=== PATIENT | female | born 2000 | race Caucasian/White ===

== ENCOUNTER 2021-09-05 09:13 | Outpatient (REF) | payer OTHER, SELFPAY ==
[2021-09-05 11:18] LABS: MANUAL DIFF FLAG NO
[2021-09-05 11:29] LABS: Basophils Percent Auto 0.3 % (0-2); Eosinophils Absolute Auto 0.2 X10*3/uL (0.0-0.4); Eosinophils Percent Auto 3.7 % (0-4); Hematocrit 42.4 % (37.0-47.0); Hemoglobin 14.4 g/dl (12.0-16.0); Imm Gran Abs Auto 0.02 X10*3/uL (0.00-0.03); Imm Gran Pct Auto 0.3 % (0.0-0.4); Lymphocytes Absolute Auto 2.4 X10*3/uL (1.2-4.9); Lymphocytes Percent Auto 37.9 % (20-40); Mean Corpuscular Hemoglobin 30.7 pg (27.0-33.0); Mean Corpuscular Volume 90.4 fL (80.0-98.0); Mean Platelet Volume 9.8 fL (9.4-12.3); Monocytes Absolute Auto 0.5 X10*3/uL (0.1-1.2); Monocytes Percent Auto 7.3 % (2-11); Neutrophils Absolute Auto 3.2 x10*3/uL (2.0-8.3); Neutrophils Percent Auto 50.5 % (45-73); Platelet Count 247 X10*3/uL (160-400); Red Blood Count 4.69 X10*6/uL (4.20-5.50); Red Cell Distribution Width 11.8 % (11.0-16.0); White Blood Count 6.3 X10*3/uL (4.8-10.8)
[2021-09-05 12:08] LABS: Alanine Aminotransferase 93 U/L (0-31); Anion Gap 12 (12-20); Aspartate Amino Transferase 49 U/L (5-31); Blood Urea Nitrogen 10 mg/dL (9-16); Calcium 9.9 mg/dL (8.4-10.2); Carbon Dioxide 25 mmol/L (22-29); Chloride 107 mmol/L (96-108); Cholesterol 250 mg/dL; Estimated Glomerular Filt Rate > 60; Glucose Fasting 87 mg/dL (60-99); HDL Cholesterol 37 mg/dL; LDL Cholesterol Calculated 143 mg/dl; Potassium 4.3 mmol/L (3.3-5.1); Sodium 140 mmol/L (135-145); TSH reflex Free T4 1.45 uIU/mL (0.32-4.0); Triglycerides 354 mg/dL
[2021-09-06 06:57] LABS: LDL Cholesterol Direct 172 mg/dL (<100)
== END 2021-09-05 09:14 | disposition home or self-care (01) ==
LOC: HO.HMGCLDS 09:13
PROVIDERS: PCP Internal Medicine; Visit Provider Internal Medicine
DX: Z00.01 Encounter for general adult medical examination with abnormal findings (principal); E66.9 Obesity, unspecified; E78.1 Pure hyperglyceridemia; Z78.9 Other specified health status; Z83.49 Family history of other endocrine, nutritional and metabolic diseases
CPT/HCPCS: 36415; 80048; 80061; 82306; 83721; 84443; 84450; 84460; 85025

== ENCOUNTER 2021-10-02 11:01 | Outpatient (REF) | payer OTHER, SELFPAY ==
[2021-10-02 17:07] LABS: CT PCR NOT DETECTED (Not Detect.); NG PCR NOT DETECTED (Not Detect.)
[2021-10-03 13:31] LABS: BV Int Neg Control Negative (Negative); BV Int Pos Control Positive (Positive)
== END 2021-10-02 11:02 | disposition home or self-care (01) ==
LOC: HO.LAB 11:01
PROVIDERS: PCP Internal Medicine; Visit Provider Advanced Practice Midwife
DX: Z01.419 Encounter for gynecological examination (general) (routine) without abnormal findings (principal); N92.6 Irregular menstruation, unspecified; N92.0 Excessive and frequent menstruation with regular cycle; E78.01 Familial hypercholesterolemia; E66.9 Obesity, unspecified; E55.9 Vitamin D deficiency, unspecified; Z11.51 Encounter for screening for human papillomavirus (HPV); Z11.3 Encounter for screening for infections with a predominantly sexual mode of transmission; Z11.8 Encounter for screening for other infectious and parasitic diseases; Z68.38 Body mass index [BMI] 38.0-38.9, adult; Z88.1 Allergy status to other antibiotic agents; Z91.010 Allergy to peanuts; Z88.0 Allergy status to penicillin; Z88.8 Allergy status to other drugs, medicaments and biological substances; Z91.018 Allergy to other foods; Z79.899 Other long term (current) drug therapy
CPT/HCPCS: 87480; 87491; 87510; 87591; 87660; 88142

== ENCOUNTER 2021-12-03 07:51 | Outpatient (REF) | payer OTHER, SELFPAY ==
[2021-12-03 12:03] LABS: Alanine Aminotransferase 85 U/L (0-31); Aspartate Amino Transferase 58 U/L (5-31); Cholesterol 169 mg/dL; HDL Cholesterol 41 mg/dL; LDL Cholesterol Calculated 86 mg/dl; Triglycerides 211 mg/dL
[2021-12-03 12:14] LABS: Vitamin D 25-OH Total 61.3 ng/mL (>30)
== END 2021-12-03 07:52 | disposition home or self-care (01) ==
LOC: HO.HMGCLDS 07:51
PROVIDERS: Visit Provider Internal Medicine
DX: E78.2 Mixed hyperlipidemia (principal); E55.9 Vitamin D deficiency, unspecified; E66.9 Obesity, unspecified
CPT/HCPCS: 36415; 80061; 82306; 84450; 84460

== ENCOUNTER 2022-09-05 09:43 | Outpatient (AMB) | payer OTHER, SELFPAY ==
--- NOTE | 2022-09-05 09:47 | MHC.PC.OV ---
Vital Signs 09/05/22 09:48 Height 5 ft 4 in Weight 225 lb BMI 38.6 BP 110/72 Blood Pressure Location Lt brachial Position Sitting Pulse 81 Pulse Source Pulse Oximeter Pulse Oximetry (%) 98 Oxygen Delivery Method Room Air Intake Visit Reasons: Shoulder Pain Intake Note: Pt is here today c/o Rt shoulder pain due to repetative movements ? pulled muscle Allergies amoxicillin Allergy (Unknown, Verified 03/23/23 00:37) Rash Hives Penicillins [PENICILLINS] Allergy (Unknown, Verified 03/23/23 00:37) HIVES venlafaxine Adverse Reaction (Intermediate, Verified 03/23/23 00:37) migraines apple Adverse Reaction (Verified 03/23/23 00:37) lip swollen Peanuts Allergy (Unknown, Uncoded 03/23/23 00:37) Hives, Rash Medication List - Last Reconciled 09/05/22 by Ana Cristina Han MD cyclobenzaprine 5 mg PO BEDTIME PRN epinephrine (EpiPen 2-Jose Alfredo) 0.3 mg (0.3 mL) IM Q4H PRN levonorgestrel-ethinyl estrad 0.15 mg-30 mcg (91) take 1 tablet daily following the order on blister card(s) PO mupirocin 2% 1 appl topical BID 7 days omega-3 acid ethyl esters (Lovaza) 1 cap PO BID rosuvastatin 5 mg PO DAILY Tobacco use date assessed: 09/05/22 HPI Shoulder Pain HPI Details 22-year-old lady here today complaining of pain in her right shoulder joint, worse with eating anything heavy with her right arm. 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 She has been taking [id number] NSAIDs which affords only temporary relief. Also has mixed dyslipidemia currently on rosuvastatin 5 mg daily and Pateros 3 fatty acid supplements. Has been trying to follow recommended diet. [facility] Medical History Chronic right shoulder pain Depression Family history of thyroid disease Hypertriglyceridemia Low back pain Menometrorrhagia Mixed dyslipidemia Obesity Uses control Vitamin D deficiency Family History Maternal Grandmother Hypertriglyceridemia Social History Housing: House Alcohol intake: current Alcohol intake frequency: holidays/special occasions only Patient Tobacco Use Status: Never used Tobacco e-Cigarette/Vaping Use: Never Used service: No Current occupational status: employed Cognitive needs: No Hearing needs: No Vision needs: No Female Reproductive History Menstrual Age of Menarche: 11 Questionnaire Thrive Questionnaire Date Thrive assessed: 09/05/21 JADON-7 AMB Questionnaire JADON-7 Date JADON - 7 assessed: 09/05/21 Source: Developed by Drs. Ronal Jarrett, Brionna Mosquera, Darryn Strickland and colleagues, with an educational tammi from [employer]. Review of Systems Const Reports no additional complaints Card Denies chest pain, Denies chest pain with activity, Denies rapid heart rate, Denies irregular heart rhythm, Denies lightheadedness and Denies dyspnea Resp Denies cough and Denies dyspnea GI Denies abdominal pain, Denies change in bowel habits and Denies heartburn Musc Denies joint swelling, Denies muscle cramps, Denies muscle weakness and Reports stiffness Skin/Breast Denies rash Neuro Reports no additional complaints Physical exam (Primary Care) Vital Signs: Last Vital Signs Pulse 81 09/05/22 09:48 BP 110/72 09/05/22 09:48 Pulse Ox 98 09/05/22 09:48 Oxygen Delivery Method Room Air 09/05/22 09:48 BMI result Body Mass Index 38.6 Tobacco/Smoking Status: Tobacco use Status Tobacco use date assessed 09/05/22 09/05/22 09:53 Patient Tobacco Use Status Never used Tobacco 09/05/22 09:53 e-Cigarette/Vaping Use Never Used 09/05/22 09:53 Thrive Assessment: Date of Thrive Assessment Date Thrive assessed 09/05/21 09/05/22 09:53 Const General: comfortable, no acute distress, alert, awake and Physically active Nutritional Appearance: obese Orientation/consciousness: patient oriented x3 HENMT Head: Yes normocephalic and Yes atraumatic General nose exam: Normal external nose present Face and sinus: Yes face symmetric Eyes General: appearance normal, both eyes and all related structures Neck Neck: Yes full ROM, Yes no lymphadenopathy and Yes supple Resp Effort & Inspection: normal respiratory effort and able to speak in complete sentences Auscultation: clear to auscultation bilaterally Cardio Rate: regular rate Rhythm: regular rhythm Heart sounds: S1 normal heart sound present and S2 normal heart sound present Back/Spine/Pelvis Cervical Spine: cervical muscular tenderness (Right trapezius area) Skin General skin exam: no rashes or lesions noted Neuro General: patient oriented x3, gait normal, tone normal, moves all extremities, Normal light touch and pain sensation, no focal motor deficits and CN's II-XI intact bilaterally Gait exam (Neuro): Normal gait present Motor exam (neuro): 5/5 motor strength present throughout Extrem Other: Slight tenderness on palpation right AC joint and no gross bone deformity or joint swelling seen. Assessment and Plan Assessment & Plan (1) Chronic right shoulder pain: Code(s): M25.511 - Pain in right shoulder; G89.29 - Other chronic pain Plan: New taking ibuprofen alternating with Tylenol arthritis 650 mg per tablet every 8 hours as needed for pain, prescription also sent for cyclobenzaprine 5 mg to take at bedtime as needed for painful muscle spasm. MRI of right shoulder joint without contrast or (2) Mixed dyslipidemia: Code(s): E78.2 - Mixed hyperlipidemia Plan: Fasting lipids ordered together with liver enzymes . Continue with rosuvastatin and Pateros 3 fatty acid supplements , in addition to adherence to low-cholesterol diet and regular exercise, at least 30 minutes 3 to 4 times a week. Advised patient to make healthy food choices, eat more fruits, vegetables, whole grains, wild caught fish and low-fat dairy. Limit amount of meat and fried or fatty food products, as well as processed foods and fast foods. Orders: Orders MR shoulder RT wo con 09/05/22 M25.511 - Pain in right shoulder, G89.29 - Other chronic pain Alanine Aminotransferase 09/05/22 E78.2 - Mixed hyperlipidemia Aspartate Amino Transferase 09/05/22 E78.2 - Mixed hyperlipidemia Lipid Panel 09/05/22 E78.2 - Mixed hyperlipidemia Medications: New cyclobenzaprine 5 mg PO BEDTIME PRN Coding Level of Care Code Est Pt Level 3 (19566) Diagnoses Chronic right shoulder pain M25.511; G89.29 Mixed dyslipidemia E78.2
[2022-09-05 09:48] VITALS: BP 110/72; PULSE 81; O2SAT 98; BMI 38.6
== END 2022-09-05 11:11 | disposition home or self-care (01) ==
LOC: HO.HMGC 09:43
PROVIDERS: PCP Internal Medicine; Visit Provider Internal Medicine
DX: M25.511 Pain in right shoulder (principal); G89.29 Other chronic pain; E78.2 Mixed hyperlipidemia
CPT/HCPCS: 99213

== ENCOUNTER 2022-09-05 10:30 | Outpatient (REF) | payer OTHER, SELFPAY ==
[2022-09-05 11:51] LABS: Alanine Aminotransferase 72 U/L (0-31); Aspartate Amino Transferase 47 U/L (5-31); Cholesterol 162 mg/dL; HDL Cholesterol 41 mg/dL; LDL Cholesterol Calculated 85 mg/dl; Triglycerides 184 mg/dL
== END 2022-09-05 10:31 | disposition home or self-care (01) ==
LOC: HO.HMGCLDS 10:30
PROVIDERS: PCP Internal Medicine; Visit Provider Internal Medicine
DX: E78.2 Mixed hyperlipidemia (principal); M25.511 Pain in right shoulder; G89.29 Other chronic pain
CPT/HCPCS: 36415; 80061; 84450; 84460

== ENCOUNTER 2022-09-25 08:53 | Outpatient (REF) | payer OTHER, SELFPAY ==
--- NOTE | ~2022-09-25 | MR_ITS ---
EXAMINATION: MR SHOULDER WITHOUT CONTRAST, RIGHT CLINICAL INFORMATION: Right shoulder pain COMPARISON: None TECHNIQUE: MRI of the shoulder without contrast was performed on a high-field scanner. FINDINGS: ROTATOR CUFF: Intact. No muscle atrophy or fatty infiltration. BICEPS: Normal. CORACOACROMIAL ARCH: The undersurface of the acromion is flat with slight lateral downsloping. The acromioclavicular joint is normal. Mild soft tissue edema in the subacromial subdeltoid bursa and along the undersurface of the coracoacromial ligament. LABRUM/CAPSULE: Normal. GLENOHUMERAL JOINT/MARROW: No joint effusion or articular cartilage defect. Bone marrow signal is normal. MR/MR shoulder RT wo con IMPRESSION: 1. No rotator cuff tear. 2. Slight lateral downsloping of the acromion and mild subacromial subdeltoid bursal edema which extends along the undersurface of the coracoacromial ligament.
== END 2022-09-25 08:54 | disposition home or self-care (01) ==
LOC: HO.MRI 08:53
PROVIDERS: Visit Provider Internal Medicine
DX: G89.29 Other chronic pain (principal); M25.511 Pain in right shoulder
CPT/HCPCS: 73221

== ENCOUNTER 2023-03-20 13:16 | Outpatient (AMB) | payer OTHER, SELFPAY ==
[2023-03-20 13:18] VITALS: BP 112/70; PULSE 86; O2SAT 99; BMI 39.3
--- NOTE | 2023-03-20 13:18 | A.OFFPC_ITS ---
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: No Accompanied by: Self / Same As Patient Allergies amoxicillin Allergy (Unknown, Verified 03/23/23 00:37) Rash Hives Penicillins [PENICILLINS] Allergy (Unknown, Verified 03/23/23 00:37) HIVES venlafaxine Adverse Reaction (Intermediate, Verified 03/23/23 00:37) migraines apple Adverse Reaction (Verified 03/23/23 00:37) lip swollen Peanuts Allergy (Unknown, Uncoded 03/23/23 00:37) Hives, Rash Medication List - Last Reconciled 03/20/23 by Ana Cristina Han MD epinephrine (EpiPen 2-Jose Alfredo) 0.3 mg (0.3 mL) IM Q4H PRN levonorgestrel-ethinyl estrad 0.15 mg-30 mcg (91) take 1 tablet daily following the order on blister card(s) PO rosuvastatin 5 mg PO 2XW Tobacco use date assessed: 09/05/22 Dental Screening Dental Screen Date: 03/20/23 Did you have a dental visit in the last 12 months?: Yes Did you have a dental problem in the last 6 months where you did not have access to dental care?: No Was dental information given to patient?: Patient has dentist HPI R shoulder pain HPI Details 22-year-old lady with mixed dyslipidemia, obesity, here today complaining of recurrent pain in her right shoulder joint, now seem to be getting worse. 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 MRI done several months ago showed no rotator cuff tear?No rotator cuff tear, slight lateral downsloping of the acromion and mild subacromial subdeltoid bursal edema which extends along the undersurface of the coracoacromial ligament.. [facility] Medical History Chronic right shoulder pain Depression Family history of thyroid disease Hypertriglyceridemia Low back pain Menometrorrhagia Mixed dyslipidemia Obesity Uses control Vitamin D deficiency Family History Maternal Grandmother Hypertriglyceridemia Social History Housing: House Alcohol intake: current Alcohol intake frequency: holidays/special occasions only Patient Tobacco Use Status: Never used Tobacco e-Cigarette/Vaping Use: Never Used service: No Current occupational status: employed Cognitive needs: No Hearing needs: No Vision needs: No Female Reproductive History Menstrual Age of Menarche: 11 Questionnaire PHQ-9 Over the last 2 weeks, how often have you been bothered by any of the following problems? 1. Little interest or pleasure in doing things: not at all 2. Feeling down, depressed, or hopeless: not at all 3. Trouble falling or staying asleep, or sleeping too much: several days 4. Feeling tired or having little energy: several days 5. Poor appetite or overeating: not at all 6. Feeling bad about yourself - or that you are a failure or have let yourself or your family down: not at all 7. Trouble concentrating on things, such as reading the newspaper or watching television: not at all 8. Moving or speaking so slowly that other people could have noticed. Or the opposite - being so fidgety or restless that you have been moving around a lot more than usual: not at all 9. Thoughts that you would be better off or of hurting yourself in some way: not at all Total score: 2 Depression Screening Interpretation: Negative 77760 - PHQ-9 Billing: Yes Source: Developed by Drs. Ronal Jarrett, Brionna Mosquera, Darryn Strickland and colleagues, with an educational tammi from [employer]. Thrive Questionnaire Date Thrive assessed: 03/20/23 I am a: Patient What is your living situation today?: I have a steady place to live Within the past 12 months, did the food you bought not last and you didn't have the money to get more?: Never true Within the past 12 months, did you worry whether your food would run out before you got money to buy more?: Never true Do you have trouble paying for medicines?: No Do you have trouble getting transportation to medical appointments?: No Do you have trouble paying your heating and electricity bill?: No Do you have trouble taking care of your child, family member or friend?: No Do you have trouble with day-to-day activities such as bathing, preparing meals, shopping, managing finances, etc.?: No Are you currently unemployed and looking for a job?: No Are you interested in more education?: No AUDIT C Alcohol Use Questionnaire (AUDIT-C) 1. How often do you have a drink containing alcohol?: Never Total Score: 0 JADON-7 AMB Questionnaire JADON-7 Date JADON - 7 assessed: 09/05/21 Source: Developed by Drs. Ronal Jarrett, Brionna Mosquera, Darryn Strickland and colleagues, with an educational tammi from [employer]. Review of Systems ENT Reports no additional complaints Card Denies chest pain, Denies rapid heart rate, Denies irregular heart rhythm, Denies lightheadedness and Denies dyspnea Resp Denies cough and Denies dyspnea GI Denies abdominal pain and Denies change in bowel habits Musc Reports as per HPI, Reports joint swelling, Reports limited range of motion (Right Shoulder), Denies muscle weakness, Reports stiffness and Reports tingling Neuro Reports no additional complaints, Reports tingling and Reports paresthesias Physical exam (Primary Care) Vital Signs: Last Vital Signs Pulse 86 03/20/23 13:18 BP 112/70 03/20/23 13:18 Pulse Ox 99 03/20/23 13:18 BMI result Body Mass Index 39.3 Tobacco/Smoking Status: Tobacco use Status Tobacco use date assessed 09/05/22 03/20/23 13:21 Patient Tobacco Use Status Never used Tobacco 03/20/23 13:21 e-Cigarette/Vaping Use Never Used 03/20/23 13:21 Depression Screening Interpretation: Negative Thrive Assessment: Date of Thrive Assessment Date Thrive assessed 09/05/21 03/20/23 13:21 Const General: comfortable, no acute distress, alert, awake and Physically active Nutritional Appearance: obese Orientation/consciousness: patient oriented x3 HENMT Head: Yes normocephalic and Yes atraumatic General nose exam: Normal external nose present Face and sinus: Yes face symmetric Neck Neck: Yes full ROM, Yes no lymphadenopathy, Yes supple and Yes tender (Right trapezius area and right posterior neck) Resp Effort & Inspection: normal respiratory effort and able to speak in complete sentences Auscultation: clear to auscultation bilaterally Cardio Rate: regular rate Rhythm: regular rhythm Heart sounds: S1 normal heart sound present and S2 normal heart sound present Back/Spine/Pelvis Cervical Spine: cervical muscular tenderness (Right trapezius area) Skin General skin exam: no rashes or lesions noted Neuro General: patient oriented x3, gait normal, tone normal, moves all extremities, Normal light touch and pain sensation, no focal motor deficits and CN's II-XI intact bilaterally Gait exam (Neuro): Normal gait present Motor exam (neuro): 5/5 motor strength present throughout Extrem Other: Slight tenderness on palpation right AC joint and no gross bone deformity or joint swelling seen. Right upper extremity: shoulder/upper arm (Tenderness over right AC joint w/ pain in shoulder on abduction ) Assessment and Plan Assessment & Plan (1) Chronic right shoulder pain: Code(s): M25.511 - Pain in right shoulder; G89.29 - Other chronic pain (2) Mixed dyslipidemia: Code(s): E78.2 - Mixed hyperlipidemia Plan: Continued on rosuvastatin and [place] 3 fatty acid supplements, ordered fasting lipids and liver enzymes Orders: Orders Lipid Panel 03/20/23 E78.2 - Mixed hyperlipidemia Aspartate Amino Transferase 03/20/23 E78.2 - Mixed hyperlipidemia Alanine Aminotransferase 03/20/23 E78.2 - Mixed hyperlipidemia Referrals Orthopedics Referral G89.29 - Other chronic pain, M25.511 - Pain in right shoulder Coding Level of Care Code Est Pt Level 3 (94764) Diagnoses Chronic right shoulder pain M25.511; G89.29 Mixed dyslipidemia E78.2
== END 2023-03-20 14:36 | disposition home or self-care (01) ==
PROVIDERS: Visit Provider Internal Medicine
DX: M25.511 Pain in right shoulder (principal); G89.29 Other chronic pain; E78.2 Mixed hyperlipidemia
CPT/HCPCS: 99213

== ENCOUNTER 2023-05-06 10:45 | Outpatient (AMB) | payer OTHER, SELFPAY ==
[2023-05-06 10:52] VITALS: BMI 39.3
--- NOTE | 2023-05-06 10:52 | A.OFFVIS_ITS ---
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 She was seen by her PCP who ordered a MRI and referred to orthopedics. States a few months after pain presented she started having tingling in her MF & RF as well as elbow. Limited ROM. No other tx. 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 She was seen by her PCP who ordered MRI and referred to our office. She states she has pain and limited ROM in her shoulder which radiates up to her neck and down to her arm. She also c/o occasional numbness in her middle and ring finger as well as the elbow. She denies any pain with reaching back. She has not had any treatment in the past. [facility] Medical History Chronic right shoulder pain Depression Family history of thyroid disease Hypertriglyceridemia Low back pain Menometrorrhagia Mixed dyslipidemia Obesity Uses control Vitamin D deficiency Family History Maternal Grandmother Hypertriglyceridemia Social History (Updated 05/06/23 @ 10:56 by Love Julian Maritza) Housing: House Alcohol intake: current Alcohol intake frequency: holidays/special occasions only Patient Tobacco Use Status: Never used Tobacco e-Cigarette/Vaping Use: Never Used service: No Current occupational status: employed Current occupation: kitchen food 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, 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 Cognitive needs: No Hearing needs: No Vision needs: No Female Reproductive History Menstrual Age of Menarche: 11 Review of Systems Const All systems reviewed & are unremarkable except as noted in HPI and below Physical Exam Vital Signs: BMI result Body Mass Index 39.3 Const General: cooperative, healthy appearing, comfortable, no acute distress, well developed and alert Orientation/consciousness: patient oriented x3 HEENT Head: Yes normal to inspection, Yes normocephalic and Yes atraumatic Eyes General: appearance normal, both eyes and all related structures Resp Effort & Inspection: normal respiratory effort and able to speak in complete sentences Cardio Rate: regular rate Peripheral pulses: Peripheral pulses 2+ throughout GI Palpation (GI): Soft to palpation Skin Lesions: no lesions Rashes: no rashes Neuro General: patient oriented x3 Extrem Other: Right shoulder normal to inspection. Tenderness over the bicipital groove and along the deltoid region of the shoulder. Forward flexion to 115, external rotation to 90, internal rotation to S1. 5/5 RTC strength. Positive Miller. NVI. Results Reviewed Results Reviewed: Xrays were obtained in the office today and personally reviewed by me of the right shoulder negative for acute fracture or dislocations. Assessment & Plan Assessment & Plan (1) Tendinitis of right rotator cuff: Code(s): M75.81 - Other shoulder lesions, right shoulder Plan We discussed options which include PT, NSAIDs and injections. The patient will defer on the injection today and proceed with PT and NSAIDs. I did send a prescription of ibuprofen to the pharmacy. If symptoms persist, the patient will contact me for an injection, otherwise, PRN. Orders: Orders XR shoulder RT min 2V Today M25.511 - Pain in right shoulder PT Evaluation and Treatment Today M75.81 - Other shoulder lesions, right shoulder Medications: New ibuprofen 800 mg PO Q8H PRN 90 tabs 3RF pain 30 days M75.81 - Other shoulder lesions, right shoulder Patient Instructions: Scribed for Maximiliano Stacy PA-C, by Pierre Randall medical technologist microbiology, on 05/06/2023 at 11:00 AM EST. IMaximiliano PA-C, have personally reviewed and agree with the information entered by the scribe. Coding Level of Care Code New Pt Level 3 (81154) Diagnoses Tendinitis of right rotator cuff M75.81
== END 2023-05-06 11:50 | disposition home or self-care (01) ==
PROVIDERS: Visit Provider Physician Assistant
DX: M75.81 Other shoulder lesions, right shoulder (principal)
CPT/HCPCS: 99203

== ENCOUNTER 2023-05-06 10:45 | Outpatient (REF) | payer OTHER, SELFPAY | END 2023-05-06 10:46 | disposition home or self-care (01) | LOC: HO.HOSX 10:45 | PROVIDERS: Visit Provider Physician Assistant | DX: M75.81 Other shoulder lesions, right shoulder (principal) | CPT/HCPCS: 73030; 99202 ==

== ENCOUNTER 2023-06-30 10:00 | Outpatient (RCR) | payer OTHER, SELFPAY | END 2023-07-16 11:34 | disposition home or self-care (01) | LOC: HO.PT 10:00 | PROVIDERS: PCP Internal Medicine; Visit Provider Physician Assistant | DX: M75.81 Other shoulder lesions, right shoulder (principal) | CPT/HCPCS: 97012; 97110; 97112; 97140; 97162 ==

== ENCOUNTER 2023-07-03 08:17 | Outpatient (AMB) | payer OTHER, SELFPAY ==
[2023-07-03 08:21] VITALS: BP 120/78; PULSE 88; O2SAT 97; BMI 39.9
--- NOTE | 2023-07-03 08:21 | A.OFFPC_ITS ---
Vital Signs 07/03/23 08:21 Height 5 ft 4 in Weight 232 lb 4 oz BMI 39.9 BP 120/78 Blood Pressure Location Lt brachial Position Sitting Pulse 88 Pulse Source Pulse Oximeter Pulse Oximetry (%) 97 Oxygen Delivery Method Room Air Intake Visit Reasons: Discuss medication Intake Note: Pt is here to discuss being put back on an antidepressant medication Allergies amoxicillin Allergy (Unknown, Verified 07/03/23 08:39) Rash Hives Penicillins [PENICILLINS] Allergy (Unknown, Verified 07/03/23 08:39) HIVES kiwi Allergy (Verified 07/03/23 08:39) hives, itchy venlafaxine Adverse Reaction (Intermediate, Verified 07/03/23 08:39) migraines apple Adverse Reaction (Verified 07/03/23 08:39) lip swollen Peanuts Allergy (Unknown, Uncoded 07/03/23 08:39) Hives, Rash Medication List - Last Reconciled 07/03/23 by Ana Cristina Han MD epinephrine (EpiPen 2-Jose Alfredo) 0.3 mg (0.3 mL) IM Q4H PRN ibuprofen 800 mg PO Q8H PRN 30 days levonorgestrel-ethinyl estrad 0.15 mg-30 mcg (91) take 1 tablet daily following the order on blister card(s) PO omega 2-gmg-mbg-fish oil 360-1,200 mg (Fish Oil) 2 caps PO DAILY rosuvastatin 5 mg PO 2XW Tobacco use date assessed: 07/03/23 Dental Screening Dental Screen Date: 07/03/23 Did you have a dental visit in the last 12 months?: Yes Did you have a dental problem in the last 6 months where you did not have access to dental care?: No Was dental information given to patient?: Patient has dentist HPI Discuss medication HPI Details 22-year-old lady here today complaining of frequent anxiety attacks. She has been diagnosed to have anxiety and depression in the past and was previously on venlafaxine, but this did not agree with her and had a hard time weaning off the medication. She states that most things would make her anxious and had a very big panic attack after a dentist visit recently. She has had therapy in the past and would like to try starting goes again . She has mixed dyslipidemia currently on rosuvastatin 5 mg taken twice a week and the of [place] 3 fatty acid supplements, due for a recheck [facility] Medical History (Updated 07/03/23 @ 08:56 by Ana Cristina Han MD) Generalized anxiety disorder Chronic right shoulder pain Mixed dyslipidemia Vitamin D deficiency Low back pain Family history of thyroid disease Uses control Menometrorrhagia Obesity Hypertriglyceridemia Depression Family History Maternal Grandmother Hypertriglyceridemia Social History Housing: House Alcohol intake: current Alcohol intake frequency: holidays/special occasions only Patient Tobacco Use Status: Never used Tobacco e-Cigarette/Vaping Use: Never Used service: No Current occupational status: employed 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 Depression Screening Interpretation: Negative Depression Screening Done: Yes Source: Developed by Drs. Ronal Jarrett, Brionna Mosquera, Darryn Strickland and colleagues, with an educational tammi from [employer]. Thrive Questionnaire Date Thrive assessed: 03/20/23 JADON-7 AMB Questionnaire JADON-7 Date JADON - 7 assessed: 07/03/23 Feeling nervous, anxious, or on edge: 2 = More than half the days Not being able to stop or control worryin = Several days Worrying too much about different things: 2 = More than half the days Trouble relaxin = Several days Being so restless that it is hard to sit still: 1 = Several days Becoming easily annoyed or irritable: 1 = Several days Feeling afraid as if something awful might happen: 1 = Several days Total JADON-7 score (0-4 normal; 5-9 mild; 10-14 moderate; 15-21 severe): 9 Source: Developed by Drs. Ronal Jarrett, Brionna Mosquera, Darryn Strickland and colleagues, with an educational tammi from [employer]. JADON-7 Assessment Billing JADON-7 Assessment Tool: JADON-7 Assessment 73221 Review of Systems Const All systems reviewed & are unremarkable except as noted in HPI and below Physical exam (Primary Care) Vital Signs: Last Vital Signs Pulse 88 07/03/23 08:21 BP 120/78 07/03/23 08:21 Pulse Ox 97 07/03/23 08:21 Oxygen Delivery Method Room Air 07/03/23 08:21 BMI result Body Mass Index 39.9 Tobacco/Smoking Status: Tobacco use Status Tobacco use date assessed 07/03/23 07/03/23 08:28 Patient Tobacco Use Status Never used Tobacco 07/03/23 08:21 e-Cigarette/Vaping Use Never Used 07/03/23 08:21 Depression Screening Interpretation: Negative Thrive Assessment: Date of Thrive Assessment Date Thrive assessed 03/20/23 07/03/23 08:21 Const General: no acute distress, alert and awake Nutritional Appearance: obese Orientation/consciousness: patient oriented x3 HENMT Head: Yes atraumatic Face and sinus: Yes face symmetric Neck Neck: Yes full ROM, Yes no lymphadenopathy and Yes supple Resp Effort & Inspection: normal respiratory effort and able to speak in complete sentences Auscultation: clear to auscultation bilaterally Cardio Rate: regular rate Rhythm: regular rhythm Heart sounds: S1 normal heart sound present and S2 normal heart sound present Neuro General: patient oriented x3, gait normal, tone normal, moves all extremities, Normal light touch and pain sensation, no focal motor deficits and CN's II-XI intact bilaterally Gait exam (Neuro): Normal gait present Motor exam (neuro): 5/5 motor strength present throughout Psych Appearance: grossly normal and well kempt Mental Status: mental status grossly normal Speech and movement: Normal speech and movement present Affect: normal affect Attitude: cooperative Thought process: Normal thought process present Thought content: Normal thought content present Assessment and Plan Assessment & Plan (1) Generalized anxiety disorder: Code(s): F41.1 - Generalized anxiety disorder Plan: Will start on buspirone 5 mg per tablet to take 1 tablet twice a day initially and may take at in another does during the middle of the day as needed for acute anxiety attacks. 90 tabs were with no refill. Discussed possible side effects of medication with patient Will refer for counseling, and will have her come back for tele health visit in 3 weeks for follow-up (2) Mixed dyslipidemia: Code(s): E78.2 - Mixed hyperlipidemia Plan: Fasting lipid panel ordered together with liver enzymes. Continue with rosuvastatin at same dose and adhere to a low-cholesterol diet and get regular exercise. (3) Vitamin D deficiency: Code(s): E55.9 - Vitamin D deficiency, unspecified Plan: Vitamin-D level ordered today, recommend just starting to take 2000 units of vitamin-D 3 once a day during the winter months. Orders: Orders Alanine Aminotransferase Today E55.9 - Vitamin D deficiency, unspecified, E78.2 - Mixed hyperlipidemia Aspartate Amino Transferase Today E55.9 - Vitamin D deficiency, unspecified, E78.2 - Mixed hyperlipidemia Lipid Panel Today E55.9 - Vitamin D deficiency, unspecified, E78.2 - Mixed hyperlipidemia Vitamin D 25-OH Total Today E55.9 - Vitamin D deficiency, unspecified, E78.2 - Mixed hyperlipidemia Medications: New buspirone 5 mg PO TID 90 tabs 0RF Coding Level of Care Code Est Pt Level 3 (17607) Diagnoses Generalized anxiety disorder F41.1 Mixed dyslipidemia E78.2 Vitamin D deficiency E55.9 Additional Codes JADON-7 Assessment Billing - JADON-7 Assessment Tool: JADON-7 Assessment 04353 ([id number])
== END 2023-07-03 10:37 | disposition home or self-care (01) ==
PROVIDERS: PCP Internal Medicine; Visit Provider Internal Medicine
DX: F41.1 Generalized anxiety disorder (principal); E78.2 Mixed hyperlipidemia; E55.9 Vitamin D deficiency, unspecified
CPT/HCPCS: 96127; 99213

== ENCOUNTER 2023-07-03 09:16 | Outpatient (REF) | payer OTHER, SELFPAY ==
[2023-07-03 11:56] LABS: Alanine Aminotransferase 55 U/L (0-31); Aspartate Amino Transferase 50 U/L (5-31); Cholesterol 182 mg/dL (<200); HDL Cholesterol 42 mg/dL (>40); LDL Cholesterol Calculated 86 mg/dL (<100); Triglycerides 272 mg/dL (<150)
[2023-07-03 12:20] LABS: Vitamin D 25-OH Total 41.7 ng/mL (>30)
== END 2023-07-03 09:17 | disposition home or self-care (01) ==
LOC: HO.HMGCLDS 09:16
PROVIDERS: PCP Internal Medicine; Visit Provider Internal Medicine
DX: E78.2 Mixed hyperlipidemia (principal); E55.9 Vitamin D deficiency, unspecified
CPT/HCPCS: 36415; 80061; 82306; 84450; 84460

== ENCOUNTER 2023-07-21 08:18 | Outpatient (AMB) | payer OTHER, SELFPAY ==
--- NOTE | 2023-07-21 08:25 | MHC.PC.OV ---
Vital Signs 07/21/23 08:26 Height 5 ft 4 in Weight 231 lb 2 oz BMI 39.7 BP 122/78 Blood Pressure Location Lt brachial Position Sitting Pulse 80 Pulse Source Pulse Oximeter Pulse Oximetry (%) 97 Oxygen Delivery Method Room Air Intake Visit Reasons: Annual PE Intake Note: Pt is here for her Annual PE pt says she has had a cough and runny nose for about a week so her asthma is flaring up Is last menstrual period known: Yes Last menstrual period: 05/31/23 Allergies amoxicillin Allergy (Unknown, Verified 07/21/23 08:59) Rash Hives Penicillins [PENICILLINS] Allergy (Unknown, Verified 07/21/23 08:59) HIVES kiwi Allergy (Verified 07/21/23 08:59) hives, itchy venlafaxine Adverse Reaction (Intermediate, Verified 07/21/23 08:59) migraines apple Adverse Reaction (Verified 07/21/23 08:59) lip swollen Peanuts Allergy (Unknown, Uncoded 07/21/23 08:59) Hives, Rash Medication List - Last Reconciled 07/21/23 by Ana Cristina Han MD albuterol sulfate 90 mcg/actuation (ProAir HFA) 2 puffs inhalation Q6H PRN buspirone 5 mg PO TID epinephrine (EpiPen 2-Jose Alfredo) 0.3 mg (0.3 mL) IM Q4H PRN fluticasone propionate 110 mcg/actuation 1 puff inhalation Q12H ibuprofen 800 mg PO Q8H PRN 30 days levonorgestrel-ethinyl estrad 0.15 mg-30 mcg (91) take 1 tablet daily following the order on blister card(s) PO omega 0-bwh-pke-fish oil 360-1,200 mg (Fish Oil) 2 caps PO DAILY rosuvastatin 5 mg PO 2XW Tobacco use date assessed: 07/21/23 Dental Screening Dental Screen Date: 07/21/23 Did you have a dental visit in the last 12 months?: Yes Did you have a dental problem in the last 6 months where you did not have access to dental care?: No Was dental information given to patient?: Patient has dentist HPI Annual PE HPI Details 23-year-old lady here today for physical exam. She has hyperlipidemia currently on rosuvastatin 5 mg taken 2 times a week, and [place] 3 fatty acid supplements 2 capsules daily, with recent fasting labs showing lipids within normal limits except for high triglycerides. Patient states that she has not really been compliant with her diet, eats a lot of fast foods and snacks. She was started on buspirone 5 mg per tablet, which she now takes twice a day, has been helping with her anxiety . She also started seeing a therapist at [facility] and counseling, She goes to [facility] for her routine Pap and pelvic exam, had her initial Pap smear done earlier this year, and is currently also being seen for surveillance for control. She has been complaining of a cough and nasal congestion with postnasal drainage for the last several days now has been taking [id number] DayQuil NyQuil which has been helping. She however has been having intermittent episodes of wheezing and chest congestion specially at night. Has started again using her ProAir inhaler and her fluticasone inhaler, which she uses only on occasions. [facility] Medical History (Updated 07/21/23 @ 09:22 by Ana Cristina Han MD) Mild intermittent asthma in adult without complication Generalized anxiety disorder Chronic right shoulder pain Mixed dyslipidemia Vitamin D deficiency Low back pain Family history of thyroid disease Uses control Menometrorrhagia Hypertriglyceridemia Depression Family History Maternal Grandmother Hypertriglyceridemia Social History Housing: House Alcohol intake: current Alcohol intake frequency: holidays/special occasions only Patient Tobacco Use Status: Never used Tobacco e-Cigarette/Vaping Use: Never Used service: No Current occupational status: employed 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 How often do you have a drink containing alcohol?: Never Total Score: 0 JADON-7 AMB Questionnaire JADON-7 Date JADON - 7 assessed: 07/03/23 Feeling nervous, anxious, or on edge: 0 = Not at all Not being able to stop or control worryin = Not at all Worrying too much about different things: 0 = Not at all Trouble relaxin = Not at all Being so restless that it is hard to sit still: 0 = Not at all Becoming easily annoyed or irritable: 0 = Not at all Feeling afraid as if something awful might happen: 0 = Not at all Total JADON-7 score (0-4 normal; 5-9 mild; 10-14 moderate; 15-21 severe): 0 Source: Developed by Drs. Ronal Jarrett, Brionna Mosquera, Darryn Strickland and colleagues, with an educational tammi from [employer]. JADON-7 Assessment Billing JADON-7 Assessment Tool: JADON-7 Assessment 09340 ACT Questionnaire In the past 4 weeks, how much of the time did your asthma keep you from getting as much done at work, school or at home?: None of the time During the past 4 weeks, how often have you had shortness of breath?: 1-2 times a week During the past 4 weeks, how often did your asthma symptoms wake you up at night or earlier than usual in the morning?: Once or twice per week During the past 4 weeks, how often have you had to use your rescue inhaler or nebulizer medication?: 2-3 times a week How would you rate your asthma control during the past 4 weeks?: Somewhat controlled ACT Interpretation: Positive Score: 19 Review of Systems Const Reports as per HPI, Denies body aches, Denies fever(s) and Denies malaise Eyes Reports blurry vision (Sees [facility] hse advisor) and Reports requires corrective lenses ENT Reports as per HPI Card Denies chest pain, Denies rapid heart rate, Denies irregular heart rhythm, Denies lightheadedness and Denies dyspnea Resp Denies dyspnea GI Denies abdominal pain and Denies change in bowel habits Reports no additional complaints Musc Reports no additional complaints Skin/Breast Denies breast pain, Denies breast mass, Denies lesions and Denies rash Neuro Reports no additional complaints Psych Reports no additional complaints Endo Reports no additional complaints Albert/Lymph Reports no additional complaints Aller/Immun Reports as per HPI Physical exam (Primary Care) Vital Signs: Last Vital Signs Pulse 80 07/21/23 08:26 BP 122/78 07/21/23 08:26 Pulse Ox 97 07/21/23 08:26 Oxygen Delivery Method Room Air 07/21/23 08:26 BMI result Body Mass Index 39.7 Tobacco/Smoking Status: Tobacco use Status Tobacco use date assessed 07/21/23 07/21/23 08:31 Patient Tobacco Use Status Never used Tobacco 07/21/23 08:25 e-Cigarette/Vaping Use Never Used 07/21/23 08:25 Thrive Assessment: Date of Thrive Assessment Date Thrive assessed 03/20/23 07/21/23 08:25 Const General: no acute distress, alert and awake Nutritional Appearance: obese Orientation/consciousness: patient oriented x3 HENMT Head: Yes atraumatic Face and sinus: Yes face symmetric Eyes General: appearance normal, both eyes and all related structures Pupils: Equal, round and reactive pupils present EOM: EOMs intact bilaterally Neck Neck: Yes full ROM, Yes no lymphadenopathy and Yes supple Chest Breast/axilla inspection: normal inspection of the breasts Breast/axilla palpation: normal palpation of the breasts Resp Effort & Inspection: normal respiratory effort and able to speak in complete sentences Auscultation: clear to auscultation bilaterally Cardio Rate: regular rate Rhythm: regular rhythm Heart sounds: S1 normal heart sound present and S2 normal heart sound present GI Inspection: Yes normal to inspection Palpation (GI): Soft to palpation, nontender, no guarding and no masses Auscultation: normal bowel sounds General: Yes no CVA tenderness and Yes deferred (Currently followed at [facility], up-to-date with her Pap smear) Back/Spine/Pelvis Back: no CVA tenderness and No back tenderness Skin General skin exam: no rashes or lesions noted Neuro General: patient oriented x3, gait normal, tone normal, moves all extremities, Normal light touch and pain sensation, no focal motor deficits and CN's II-XI intact bilaterally Cranial nerves: Yes Equal, round and reactive pupils present Gait exam (Neuro): Normal gait present Motor exam (neuro): 5/5 motor strength present throughout Psych Appearance: grossly normal and well kempt Mental Status: mental status grossly normal Speech and movement: Normal speech and movement present Affect: normal affect Attitude: cooperative Thought process: Normal thought process present Thought content: Normal thought content present Results Reviewed Results Reviewed: SPEC : [id number] EDA: 07/03/23 STATUS: COMP REQ : [id number] RECD: 07/03/[address] [facility] [address]: Ana Cristina Han MD COMP: 07/03/23 ENTERED: 07/03/23 [facility] DR: ORDERED: AST, ALT, Lipid Panel, Vitamin D 25-OH Test Result Flag Reference Site AST (GOT) 50 H 5-31 U/L ALT (GPT) 55 H 0-31 U/L Triglyceride 272 H <150 mg/dL Desirable Triglyceride: less than 150 mg/dL Borderline High Triglyceride 150-199 mg/dL High Triglyceride: 200-499 mg/dL Very High Triglyceride: greater than or equal to 5OO mg/dL Cholesterol 182 <200 mg/dL Desirable Cholesterol: less than 200 mg/dL Borderline High Cholesterol: 200-239 mg/dL High Cholesterol: greater than 239 mg/dL LDL Calculated 86 <100 mg/dL Desirable LDL: less than 100 mg/dL Near Optimal/Above Optimal LDL: 110-129 mg/dL Borderline High LDL: 130-159 mg/dL High LDL: 160-189 mg/dL Very High LDL: greater than or equal to 190 mg/dL HDL 42 >40 mg/dL Desirable HDL: greater than 40 mg/dL Note: This HDL assay may give artificially low results in patients with liver disease. Vit D 25-OH Tot 41.7 >30 ng/mL Health Based Reference Values* < 20 ng/mL Deficient 20-30 ng/mL Insufficient > 30 ng/mL Sufficient Assessment and Plan Assessment & Plan (1) Obesity (BMI 30-39.9): Code(s): E66.9 - Obesity, unspecified Plan: Recommended focusing on improving your health instead of dieting. : Eat Mediterranean diet, limit foods high in fat, sugar, and calories, eat slowly, pay attention to portion sizes, plan your meals ahead of time, start regular physical activity 150 minutes of moderate intensity exercise or 90 minutes/week of vigorous exercise and increase water intake. (2) Mixed dyslipidemia: Code(s): E78.2 - Mixed hyperlipidemia Plan: Reviewed recent fasting lipid profile with patient with normal LDL cholesterol but elevated triglycerides. Continue with rosuvastatin 5 mg taken twice a week, and increase [place] 3 fatty acid supplements to 2 capsules twice a day, stressed importance of avoiding junk food, in addition to adherence to low-cholesterol diet and regular exercise, at least 30 minutes 3 to 4 times a week. Advised patient to make healthy food choices, eat more fruits, vegetables, whole grains, wild caught fish and low-fat dairy. Limit amount of meat and fried or fatty food products, as well as processed foods and fast foods. Follow-up scheduled with repeat fasting lipid panel in 6 months. (3) Generalized anxiety disorder: Code(s): F41.1 - Generalized anxiety disorder Plan: He will continue on buspirone 5 mg taken 1 tablet twice a day, and has started regular counseling at [facility] and counseling (4) Annual visit for general adult medical examination with abnormal findings: Code(s): Z00.01 - Encounter for general adult medical examination with abnormal findings Plan: Reviewed recent fasting lab results with patient. Continue regular dental visit every 6 months and regular eye exams, at least every 2 years. Take adequate calcium in diet and vitamin-D 3 at 2000 IU per cap once a day, in addition to weight-bearing exercises to help maintain good muscle tone and weight control. Instructed to do self-breast exam, and recommended to get yearly mammogram, starting at age 40 goes to [facility] for her routine Pap and pelvic exam, currently up-to-date. Has had COVID vaccinations a past but has not yet had her booster, reminded to get her COVID booster, pneumonia vaccine, flu shot once feeling better. (5) Upper respiratory infection with cough and congestion: Code(s): J06.9 - Acute upper respiratory infection, unspecified Plan: Continue with a take will NyQuil, use albuterol inhaler as needed for episodes of wheezing and bronchospasm, start taking fluticasone 110 mcg per inhalation 1-2 inhalations every 12 hours Medications: New albuterol sulfate 90 mcg/actuation (ProAir HFA) 2 puffs inhalation Q6H PRN 8.5 grams 2RF shortness of breath or wheezing fluticasone propionate 110 mcg/actuation 1 puff inhalation Q12H 12 grams 2RF Refilled buspirone 5 mg PO TID 90 tabs 0RF Coding Level of Care Code Est Pt Prev Care 18-39y(61049) Diagnoses Obesity (BMI 30-39.9) E66.9 Mixed dyslipidemia E78.2 Generalized anxiety disorder F41.1 Annual visit for general adult medical examination with abnormal findings Z00.01 Upper respiratory infection with cough and congestion J06.9 Additional Codes JADON-7 Assessment Billing - JADON-7 Assessment Tool: JADON-7 Assessment 03928 ([id number])
[2023-07-21 08:26] VITALS: BP 122/78; PULSE 80; O2SAT 97; BMI 39.7
== END 2023-07-21 09:18 | disposition home or self-care (01) ==
PROVIDERS: Visit Provider Internal Medicine
DX: Z00.01 Encounter for general adult medical examination with abnormal findings (principal); E66.9 Obesity, unspecified; Z68.39 Body mass index [BMI] 39.0-39.9, adult; E78.2 Mixed hyperlipidemia; F41.1 Generalized anxiety disorder; J06.9 Acute upper respiratory infection, unspecified
CPT/HCPCS: 96127; 99213; 99395

== ENCOUNTER 2023-10-09 09:05 | Outpatient (AMB) | payer OTHER, SELFPAY ==
[2023-10-09 09:55] VITALS: BP 120/80; PULSE 112; TEMP 36.4; O2SAT 99; BMI 39.3
--- NOTE | 2023-10-09 09:55 | AM.OFFWIN_ITS ---
Intake Vital Signs 10/09/23 09:55 Height 5 ft 4 in Weight 229 lb BMI 39.3 BP 120/80 Blood Pressure Location Lt brachial Position Sitting Pulse 112 H Pulse Source Pulse Oximeter Temp 97.5 F Temp Source Temporal Artery Scan Pulse Oximetry (%) 99 Oxygen Delivery Method Room Air Intake Visit Reasons: EST/sore throat ([phone]) Intake Note: pt is here today for sore throat started yesterday Patient Tobacco Use Status: Never used Tobacco Allergies amoxicillin Allergy (Unknown, Verified 10/09/23 09:56) Rash Hives Penicillins [PENICILLINS] Allergy (Unknown, Verified 10/09/23 09:56) HIVES kiwi Allergy (Verified 10/09/23 09:56) hives, itchy venlafaxine Adverse Reaction (Intermediate, Verified 10/09/23 09:56) migraines apple Adverse Reaction (Verified 10/09/23 09:56) lip swollen Peanuts Allergy (Unknown, Uncoded 07/21/23 08:59) Hives, Rash Do you need a note to return to daycare/school/sports/work: Yes HPI HPI Comments History of Present Illness Details 23 y/o female who presents to walk in [facility] with c/o Sore-throat x 3 days. Denies fevers, chills, nausea or vomiting. [facility] Medical History (Updated 07/21/23 @ 09:22 by Ana Cristina Han MD) Mild intermittent asthma in adult without complication Generalized anxiety disorder Chronic right shoulder pain Mixed dyslipidemia Vitamin D deficiency Low back pain Family history of thyroid disease Uses control Menometrorrhagia Hypertriglyceridemia Depression Family History Maternal Grandmother Hypertriglyceridemia Social History Housing: House Alcohol intake: current Alcohol intake frequency: holidays/special occasions only Patient Tobacco Use Status: Never used Tobacco e-Cigarette/Vaping Use: Never Used service: No Current occupational status: employed 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, 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 Cognitive needs: No Hearing needs: No Vision needs: No Female Reproductive History Menstrual Age of Menarche: 11 Review of Systems Const All systems reviewed & are unremarkable except as noted in HPI and below Physical Exam Vital Signs: Last Vital Signs Temp 97.5 F 10/09/23 09:55 Pulse 112 H 10/09/23 09:55 BP 120/80 10/09/23 09:55 Pulse Ox 99 10/09/23 09:55 Oxygen Delivery Method Room Air 10/09/23 09:55 BMI result Body Mass Index 39.3 Const General: comfortable and no acute distress Orientation/consciousness: patient oriented x3 HEENT Head: Yes normocephalic Ears: external ears normal and TM's normal bilaterally General nose exam: Normal nasal mucous membranes and turbinates present Face and sinus: Yes sinuses nontender Mouth: Abnormal oral and palatal mucosa present erythematous and white patches Throat: Yes posterior oropharynx normal Resp Effort & Inspection: normal respiratory effort, able to speak in complete sentences and no cough Auscultation: clear to auscultation bilaterally, no crackles, no rales, no rhonchi and no wheezes Cardio Rate: regular rate Rhythm: regular rhythm Neuro General: patient oriented x3 Results AMB Rapid Strep AMB Rapid Strep Positive Last Edit by MEGHNA Carreno on 10/09/23 10:13 Results Reviewed Results Reviewed: Laboratory Last Values Strep Scn [facility] Clinic Positive 10/09/23 10:12 Assessment & Plan Assessment & Plan (1) Acute streptococcal pharyngitis: Code(s): J02.0 - Streptococcal pharyngitis Plan: - Rest and hydrate with warm fluids - Acetaminophen for pain relief - Take medications as directed - OTC cold remedies. Orders: Orders AMB Rapid Strep Screen Today Z13.9 - Encounter for screening, unspecified Medications: New azithromycin 500 mg PO DAILY 5 days 5 tabs 0RF J02.0 - Streptococcal pharyngitis Coding Level of Care Code Est Pt Level 3 (64451) Diagnoses Acute streptococcal pharyngitis J02.0 Time Spent (min) 15
== END 2023-10-09 11:23 | disposition home or self-care (01) ==
PROVIDERS: PCP Internal Medicine; Visit Provider Nurse Practitioner Family
DX: J02.0 Streptococcal pharyngitis (principal); J02.9 Acute pharyngitis, unspecified
CPT/HCPCS: 87880; 99213

== ENCOUNTER 2023-11-23 10:03 | Outpatient (AMB) | payer OTHER, SELFPAY ==
[2023-11-23 10:04] VITALS: BP 122/68; BMI 39.8
--- NOTE | 2023-11-23 10:04 | A.OFFVIS_ITS ---
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: No Information Interpreted: non-clinical & clinical Parachute Accessories Attacher: Parachute Accessories Attacher Present (Aidyn) Allergies amoxicillin Allergy (Unknown, Verified 11/23/23 10:08) Rash Hives Penicillins [PENICILLINS] Allergy (Unknown, Verified 11/23/23 10:08) HIVES kiwi Allergy (Verified 11/23/23 10:08) hives, itchy venlafaxine Adverse Reaction (Intermediate, Verified 11/23/23 10:08) migraines apple Adverse Reaction (Verified 11/23/23 10:08) lip swollen Peanuts Allergy (Unknown, Uncoded 11/23/23 10:08) Hives, Rash Medication List - Last Reconciled 11/23/23 by Jossie Bass CNM albuterol sulfate 90 mcg/actuation (ProAir HFA) 2 puffs inhalation Q6H PRN azithromycin 500 mg PO DAILY 5 days buspirone 5 mg PO TID 3 months epinephrine (EpiPen 2-Jose Alfredo) 0.3 mg (0.3 mL) IM Q4H PRN fluticasone propionate 110 mcg/actuation 1 puff inhalation Q12H ibuprofen 800 mg PO Q8H PRN 30 days levonorgestrel-ethinyl estrad 0.15 mg-30 mcg (91) take 1 tablet daily following the order on blister card(s) PO omega 2-ecv-ojs-fish oil 360-1,200 mg (Fish Oil) 2 caps PO DAILY rosuvastatin 5 mg PO 2XW Is last menstrual period known: Yes Last menstrual period: 08/28/23 Post menopausal: No HPI HPI annual: Details: 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 She has been on the control pills for about 8 years she started them originally because of heavy periods and irregular periods. She has always been overweight at 1 point when she was younger she was sent to the weight management program and lost from about 210-160. 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 She also has high cholesterol that is use she is watching that as well she is on medication for she has not currently sexually active and has not been for time for least 4 years. She was last checked for her Pap smear in for full STI testing in 2001: Negative. [facility] Medical History Mild intermittent asthma in adult without complication Generalized anxiety disorder Chronic right shoulder pain Mixed dyslipidemia Vitamin D deficiency Low back pain Family history of thyroid disease Uses control Menometrorrhagia Hypertriglyceridemia Depression Family History Maternal Grandmother Hypertriglyceridemia Social History Housing: House Alcohol intake: current Alcohol intake frequency: holidays/special occasions only Patient Tobacco Use Status: Never used Tobacco e-Cigarette/Vaping Use: Never Used service: No Current occupational status: employed 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, 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 Cognitive needs: No Hearing needs: No Vision needs: No Female Reproductive History Menstrual Age of Menarche: 11 Duration of menses: 3-5 days Date of last menstrual period: 08/28/23 control method: pills Total pregnancies: 0 Date of last pap smear: 10/03/21 (negative) History of abnormal pap smear: No Physical Exam Vital Signs: Last Vital Signs BP 122/68 11/23/23 10:04 BMI result Body Mass Index 39.8 Const General: healthy appearing, comfortable, no acute distress, well developed and alert Nutritional Appearance: average body habitus Orientation/consciousness: patient oriented x3 Limitations: no limitations HEENT Head: Yes normocephalic Neck Neck: Yes normal visual inspection Chest Chest palpation & inspection: normal inspection of the chest Breast/axilla inspection: normal inspection of the breasts and normal inspection of the axillae Breast/axilla palpation: normal palpation of the breasts and normal palpation of the axillae Resp Effort & Inspection: normal respiratory effort GI Inspection: Yes normal to inspection, No Abdominal wall edema and No distended Palpation (GI): Soft to palpation and nontender Other: Speculum exam normal external exam. No lesions at all vagina pink and moist cervix slightly reddened normal appearing mucus good muscle tone bladder was very full and that did limit exam nulliparous cervix was very posterior/. General: Yes bladder normal to palpation External Female Exam: normal external appearance and normal appearance of the urethra Speculum Exam - Vagina: normal appearance of the vagina, normal palpation and normal vaginal discharge Speculum Exam - Cervix: normal appearance of the cervix, normal palpation and nontender Bimanual exam- vagina & uterus: normal bimanual exam, normal palpation, uterine size normal, bladder normal to palpation, consistency normal, normal palpation, uterine mobility normal, uterine shape normal, No Cervical tenderness present, non-tender and no cervical motion tenderness Bimanual Exam- Adnexa, other: normal adnexae, no masses, normal and No adnexal tenderness Neuro General: patient oriented x3 Results Reviewed Results Reviewed: Last Pap and full STI testing negative in 2021. Assessment & Plan Assessment & Plan (1) Surveillance for control, oral contraceptives: Code(s): Z30.41 - Encounter for surveillance of contraceptive pills Category: Medical (2) Obesity (BMI 30-39.9): Code(s): E66.9 - Obesity, unspecified Category: Medical (3) History of abnormal menstrual cycle: Code(s): Z87.42 - Personal history of other diseases of the female genital tract Category: Medical Plan -----Discussed in this visit the following: healthy balanced diet, regular and consistent exercise, getting recommended health screens, doing the best she can for her particular health concerns, kegel exercises, pap smear screening and followup recommendations, mammography screening and SBE, normal changes in cycles in her life stage--- .----I reviewed available options for Control Methods and their associated side effect profiles. In particular, we discussed the method most of interest to her. Reviewed that in this point she is really using it to control manage her menses and she likes getting her light menses about every 3 months she is right on point with the control pills. Because she is not at the moment sexually active. And has not been for a long time she does not need it for controls but we did review safer sex in detail. ---most of the visit revolved around discussions of weight in the challenges of oozing weight. Discussed the long-term full issues in using these issues as a motivator. When she is ready she will be ready discussed the advantages go losing weight when she is younger for her health and also for how she feels for every other reason as well including cosmetics. Discussed how we influences every part of our health including menstrual cycles bleeding and cholesterol risk diabetes in everything else. Discussed considerations to getting a brittle filter she does not like water she tries lots of different things to flavored water with non caloric non sugar flavorings. -----RTC 1 year she will be due for Pap smear next year. Medications: Refilled levonorgestrel-ethinyl estrad 0.15 mg-30 mcg (91) take 1 tablet daily following the order on blister card(s) PO 91 ea 4RF
== END 2023-11-23 11:11 | disposition home or self-care (01) ==
LOC: HO.HWSM 10:03
PROVIDERS: PCP Internal Medicine; Visit Provider Advanced Practice Midwife
DX: Z01.419 Encounter for gynecological examination (general) (routine) without abnormal findings (principal); E66.9 Obesity, unspecified; Z87.42 Personal history of other diseases of the female genital tract
CPT/HCPCS: 99395

== ENCOUNTER → 2023-11-23 10:03 | Outpatient (BNVA) | payer OTHER, SELFPAY | PROVIDERS: PCP Internal Medicine; Visit Provider Advanced Practice Midwife | DX: Z30.41 Encounter for surveillance of contraceptive pills (principal); E66.9 Obesity, unspecified; Z87.42 Personal history of other diseases of the female genital tract; Z68.39 Body mass index [BMI] 39.0-39.9, adult | CPT/HCPCS: 99395 ==

== ENCOUNTER 2024-03-04 08:08 | Outpatient (AMB) | payer OTHER, SELFPAY ==
[2024-03-04 08:18] VITALS: BP 122/80; PULSE 68; TEMP 37.1; O2SAT 98; BMI 39.8
--- NOTE | 2024-03-04 08:18 | MHC.OFFWIV ---
Intake Vital Signs 03/04/24 08:18 Height 5 ft 4 in Weight 232 lb BMI 39.8 BP 122/80 Blood Pressure Location Rt brachial Position Sitting Pulse 68 Pulse Source Pulse Oximeter Temp 98.7 F Temp Source Oral Pulse Oximetry (%) 98 Oxygen Delivery Method Room Air Intake Visit Reasons: EP concern with tongue Intake Note: pt is here for concern of her tongue Patient Tobacco Use Status: Never used Tobacco Allergies amoxicillin Allergy (Unknown, Verified 03/04/24 08:18) Rash Hives Penicillins [PENICILLINS] Allergy (Unknown, Verified 03/04/24 08:18) HIVES kiwi Allergy (Verified 03/04/24 08:18) hives, itchy venlafaxine Adverse Reaction (Intermediate, Verified 03/04/24 08:18) migraines apple Adverse Reaction (Verified 03/04/24 08:18) lip swollen Peanuts Allergy (Unknown, Uncoded 11/23/23 10:08) Hives, Rash Do you need a note to return to daycare/school/sports/work: No HPI HPI Comments History of Present Illness Details This is a 23-year-old female who presented to the walk-in clinic complaining of tongue sores. She states she first noticed this 2 or 3 days ago while she was brushing her teeth. She denies any throat/tongue swelling. She denies any sore throat or tongue pain. She denies any fever/chills. She denies any neck swelling or swollen lymph nodes. She otherwise denies any symptoms and is feeling well. [facility] Medical History Mild intermittent asthma in adult without complication Generalized anxiety disorder Chronic right shoulder pain Mixed dyslipidemia Vitamin D deficiency Low back pain Family history of thyroid disease Uses control Menometrorrhagia Hypertriglyceridemia Depression Family History Maternal Grandmother Hypertriglyceridemia Social History Housing: House Alcohol intake: current Alcohol intake frequency: holidays/special occasions only Patient Tobacco Use Status: Never used Tobacco e-Cigarette/Vaping Use: Never Used service: No Current occupational status: employed 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, 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 Cognitive needs: No Hearing needs: No Vision needs: No Female Reproductive History Menstrual Age of Menarche: 11 Review of Systems Const All systems reviewed & are unremarkable except as noted in HPI and below Reports no additional complaints Eyes Reports no additional complaints ENT Reports no additional complaints Card Reports no additional complaints Resp Reports no additional complaints GI Reports no additional complaints Reports no additional complaints Musc Reports no additional complaints Skin/Breast Reports system reviewed and no additional complaints, except as documented Neuro Reports no additional complaints Psych Reports no additional complaints Endo Reports no additional complaints Albert/Lymph Reports no additional complaints Aller/Immun Reports no additional complaints Physical Exam Vital Signs: Last Vital Signs Temp 98.7 F 03/04/24 08:18 Pulse 68 03/04/24 08:18 BP 122/80 03/04/24 08:18 Pulse Ox 98 03/04/24 08:18 Oxygen Delivery Method Room Air 03/04/24 08:18 BMI result Body Mass Index 39.8 Const Other: Vital signs reviewed. Constitutional: Non-toxic appearing. No acute distress. Well-developed and well-nourished. HEENT: Normocephalic and atraumatic. There is a white film coating the tongue. There are two small shallow sores on the left side of the tongue with mild surrounding erythema. No posterior pharyngeal or tonsillar erythema, exudates, or edema. Skin: Warm and dry. No rashes or lesions noted. Neck: Full and painless range of motion. No cervical lymphadenopathy. Cardio: Regular rate. Pulmonary: No respiratory distress. No accessory muscle usage. Gastrointestinal: Soft and non-distended in all 4 quadrants. Musculoskeletal: Normal range of motion in joints throughout the body. No deformity or other signs of injury. Neuro: Alert and oriented x4. Cranial nerves 2-12 grossly intact. No focal deficits appreciated. Psych: Normal mood and affect. 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 On physical examination, there is a white coating/film on her tongue as well as 2 small shallow sores with mild surrounding erythema. History and physical appear most consistent with oropharyngeal candidiasis and aphthous ulcers. Patient given a prescription for nystatin swish and spit 4 times daily. Recommended saltwater gargles and [id number] topical lidocaine for pain. Patient was advised to follow-up here or proceed to the emergency room if she were develop tongue/throat swelling, difficulty swallowing, fever/chills, or worsening/persistent symptoms. Patient verbalized understanding and she is in agreement with the plan. Medications: New nystatin swish and swallow 4 mL PO QID 200 mL 0RF nystatin swish and spit 4 mL PO QID 200 mL 0RF Coding Level of Care Code Est Pt Level 3 (62464) Diagnoses Oropharyngeal candidiasis B37.0 Aphthous ulcer K12.0
== END 2024-03-04 08:33 | disposition home or self-care (01) ==
PROVIDERS: PCP Internal Medicine; Visit Provider Physician Assistant Medical
DX: B37.0 Candidal stomatitis (principal); K12.0 Recurrent oral aphthae
CPT/HCPCS: 99213

== ENCOUNTER 2024-07-28 08:04 | Outpatient (REF) | payer OTHER, SELFPAY ==
[2024-07-28 10:37] LABS: Alanine Aminotransferase 92 U/L (0-31); Albumin Level 4.5 g/dL (3.5-5.0); Alkaline Phosphatase 60 U/L (39-117); Anion Gap 9 (12-20); Aspartate Amino Transferase 59 U/L (5-31); Bilirubin Total 0.5 mg/dL (0.0-1.0); Blood Urea Nitrogen 13 mg/dL (9-16); Calcium 9.5 mg/dL (8.4-10.2); Carbon Dioxide 26 mmol/L (22-29); Chloride 108 mmol/L (96-108); Cholesterol 153 mg/dL (<200); Estimated Glomerular Filt Rate > 60; Glucose Fasting 100 mg/dL (60-99); HDL Cholesterol 46 mg/dL (>40); LDL Cholesterol Calculated 74 mg/dL (<100); Potassium 4.1 mmol/L (3.3-5.1); Sodium 139 mmol/L (135-145); Triglycerides 168 mg/dL (<150)
[2024-07-28 11:21] LABS: TSH reflex Free T4 1.41 uIU/mL (0.32-4.0)
== END 2024-07-28 08:05 | disposition home or self-care (01) ==
LOC: HO.HMGCLDS 08:04
PROVIDERS: PCP Internal Medicine; Visit Provider Internal Medicine
DX: Z00.01 Encounter for general adult medical examination with abnormal findings (principal); E78.2 Mixed hyperlipidemia; J45.20 Mild intermittent asthma, uncomplicated; E66.01 Morbid (severe) obesity due to excess calories; Z68.41 Body mass index [BMI] 40.0-44.9, adult; Z71.89 Other specified counseling; Z87.42 Personal history of other diseases of the female genital tract; Z83.49 Family history of other endocrine, nutritional and metabolic diseases
CPT/HCPCS: 36415; 80053; 80061; 84443; 96127; 99395

== ENCOUNTER 2024-07-28 08:04 | Outpatient (AMB) | payer OTHER, SELFPAY ==
--- NOTE | 2024-07-28 08:08 | MHC.PC.OV ---
Vital Signs 07/28/24 08:09 Height 5 ft 4 in Weight 242 lb BMI 41.5 BP 100/74 Blood Pressure Location Rt brachial Position Sitting Pulse 85 Pulse Source Pulse Oximeter Pulse Oximetry (%) 98 Oxygen Delivery Method Room Air Intake Visit Reasons: Annual PE Intake Note: Pt is here today for her PE: Last papsmear 10/03/21 Allergies amoxicillin Allergy (Unknown, Verified 07/28/24 08:22) Rash Hives Penicillins [PENICILLINS] Allergy (Unknown, Verified 07/28/24 08:22) HIVES kiwi Allergy (Verified 07/28/24 08:22) hives, itchy venlafaxine Adverse Reaction (Intermediate, Verified 07/28/24 08:22) migraines apple Adverse Reaction (Verified 07/28/24 08:22) lip swollen Peanuts Allergy (Unknown, Uncoded 07/28/24 08:22) Hives, Rash Medication List - Last Reconciled 07/28/24 by Ana Cristina Han MD albuterol sulfate 90 mcg/actuation (ProAir HFA) 2 puffs inhalation Q6H PRN epinephrine (EpiPen 2-Jose Alfredo) 0.3 mg (0.3 mL) IM Q4H PRN ibuprofen 800 mg PO Q8H PRN 30 days omega 4-xlj-rap-fish oil 360-1,200 mg (Fish Oil) 2 caps PO DAILY rosuvastatin 5 mg PO DAILY Tobacco use date assessed: 07/28/24 Dental Screening Dental Screen Date: 07/28/24 Did you have a dental visit in the last 12 months?: Yes Did you have a dental problem in the last 6 months where you did not have access to dental care?: No Was dental information given to patient?: Patient has dentist HPI Annual PE HPI Details - The patient is a 24-year-old female presenting for a physical examination and follow up on her mixed dyslipidemia - has hx of Irregular menstruation, was taking controlpills for the last 9 years . Patient decided to stop taking it this March 2024 as she feels that she has been on it for a long time . Has had 1 regular period last 04/2024 . Not currently sexually active. - has Generalized Anxiety disorder, recently discontinued taking her medications ,feeling stable and able to control anxiety symptoms with behavioral techniques , does not feel that she needs to take medication anymore. - Asthma: Uses albuterol inhaler rarely, was on Fluticasone in the past . - History of right leg tibia and fibula fracture in 2012 from a fall; healed with cast for roughly 3 months, no surgical intervention. - Elevated triglycerides diagnosed previously, taking rosuvastatin and Fish oil supplements , started taking rosuvastatin daily in the last 2 months . - Last cervical cancerscreening and pelvic exam done at [facility] in 2021, has an appt for routine pap/pelvic exam already scheduled in 11/2024 [facility] Medical History (Updated 07/28/24 @ 08:45 by Ana Cristina Han MD) Morbid obesity Mild intermittent asthma in adult without complication Generalized anxiety disorder Mixed dyslipidemia Low back pain Family history of thyroid disease Hypertriglyceridemia Family History (Updated 07/28/24 @ 08:46 by Ana Cristina Han MD) Maternal Grandmother Hypertriglyceridemia Thyroid disease Diabetes mellitus Social History Housing: House Alcohol intake: current Alcohol intake frequency: holidays/special occasions only Patient Tobacco Use Status: Never used Tobacco e-Cigarette/Vaping Use: Never Used service: No Current occupational status: employed 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 1. Little interest or pleasure in doing things: not at all 2. Feeling down, depressed, or hopeless: not at all 3. Trouble falling or staying asleep, or sleeping too much: not at all 4. Feeling tired or having little energy: several days 5. Poor appetite or overeating: not at all 6. Feeling bad about yourself - or that you are a failure or have let yourself or your family down: not at all 7. Trouble concentrating on things, such as reading the newspaper or watching television: not at all 8. Moving or speaking so slowly that other people could have noticed. Or the opposite - being so fidgety or restless that you have been moving around a lot more than usual: not at all 9. Thoughts that you would be better off or of hurting yourself in some way: not at all Total score: 1 Depression Screening Interpretation: Negative Depression Screening Done: Yes 64034 - PHQ-9 Billing: Yes Source: Developed by Drs. Ronal Jarrett, Brionna Mosquera, Darryn Strickland and colleagues, with an educational tammi from [employer]. Thrive Questionnaire Date Thrive assessed: 07/28/24 I am a: Patient What is your living situation today?: I have a steady place to live Within the past 12 months, did the food you bought not last and you didn't have the money to get more?: Never true Within the past 12 months, did you worry whether your food would run out before you got money to buy more?: Never true Do you have trouble paying for medicines?: No Do you have trouble getting transportation to medical appointments?: No Do you have trouble paying your heating and electricity bill?: No Do you have trouble taking care of your child, family member or friend?: No Do you have trouble with day-to-day activities such as bathing, preparing meals, shopping, managing finances, etc.?: No Are you currently unemployed and looking for a job?: No Are you interested in more education?: Yes Please select the resources that you would like help with: None Currently or been in a relationship where the following occur: No concerns reported THRIVE Score: 0 AUDIT C Alcohol Use Questionnaire (AUDIT-C) 1. How often do you have a drink containing alcohol?: Monthly or less 2. How many drinks containing alcohol do you have on a typical day when you are drinking?: 1 or 2 3. How often do you have six or more drinks on one occasion?: Never Total Score: 1 JADON-7 AMB Questionnaire JADON-7 Date JADON - 7 assessed: 07/28/24 Feeling nervous, anxious, or on edge: 1 = Several days Not being able to stop or control worryin = Not at all Worrying too much about different things: 1 = Several days Trouble relaxin = Not at all Being so restless that it is hard to sit still: 0 = Not at all Becoming easily annoyed or irritable: 1 = Several days Feeling afraid as if something awful might happen: 0 = Not at all Total JADON-7 score (0-4 normal; 5-9 mild; 10-14 moderate; 15-21 severe): 3 Source: Developed by Drs. Ronal Jarrett, Brionna Mosquera, Darryn Strickland and colleagues, with an educational tammi from [employer]. JADON-7 Assessment Billing JADON-7 Assessment Tool: JADON-7 Assessment 69915 Review of Systems Const All systems reviewed & are unremarkable except as noted in HPI and below Reports no additional complaints and Reports weight gain Eyes Reports no additional complaints ENT Reports no additional complaints Card Reports no additional complaints Resp Reports no additional complaints GI Reports no additional complaints Reports no additional complaints Musc Reports no additional complaints Skin/Breast Reports system reviewed and no additional complaints, except as documented Neuro Reports no additional complaints Psych Reports no additional complaints Endo Reports no additional complaints Albert/Lymph Reports no additional complaints Aller/Immun Reports no additional complaints Physical exam (Primary Care) Vital Signs: Last Vital Signs Pulse 85 07/28/24 08:09 BP 100/74 07/28/24 08:09 Pulse Ox 98 07/28/24 08:09 Oxygen Delivery Method Room Air 07/28/24 08:09 BMI result Body Mass Index 41.5 Tobacco/Smoking Status: Tobacco use Status Tobacco use date assessed 07/28/24 07/28/24 08:09 Patient Tobacco Use Status Never used Tobacco 07/28/24 08:09 e-Cigarette/Vaping Use Never Used 07/28/24 08:09 PHQ-9: PHQ-9 Score PHQ-9: Total score 2 07/28/24 08:09 Depression Screening Interpretation: Negative Thrive Assessment: Date of Thrive Assessment Date Thrive assessed 07/25/24 07/28/24 08:09 Currently or been in a relationship where the following occur: No concerns reported Advance Care Planning discussion: Completed/Scanned Date of discussion: 07/28/24 Who was present: patient Forms completed: Health Care Proxy Time spent: 16-45 minutes Actual minutes spent: 1 Const General: no acute distress, alert and awake Orientation/consciousness: patient oriented x3 HENMT Face and sinus: Yes face symmetric Eyes General: appearance normal, both eyes and all related structures Pupils: Equal, round and reactive pupils present EOM: EOMs intact bilaterally Neck Neck: Yes full ROM, Yes no lymphadenopathy and Yes supple Thyroid: other (nonpalpabe) Chest Breast/axilla inspection: normal inspection of the breasts Breast/axilla palpation: normal palpation of the breasts Resp Effort & Inspection: normal respiratory effort and able to speak in complete sentences Auscultation: clear to auscultation bilaterally Cardio Rate: regular rate Rhythm: regular rhythm Heart sounds: S1 normal heart sound present and S2 normal heart sound present GI Inspection: Yes normal to inspection Palpation (GI): Soft to palpation, nontender, no guarding and no masses Auscultation: normal bowel sounds General: Yes no CVA tenderness and Yes deferred (Currently followed at [facility], up-to-date with her Pap smear) Back/Spine/Pelvis Back: no CVA tenderness and No back tenderness Skin Other: tatoo on right arm and thigh General skin exam: no rashes or lesions noted Neuro General: patient oriented x3, gait normal, tone normal, moves all extremities, Normal light touch and pain sensation, no focal motor deficits and CN's II-XI intact bilaterally Cranial nerves: Yes Equal, round and reactive pupils present Gait exam (Neuro): Normal gait present Motor exam (neuro): 5/5 motor strength present throughout Extrem General: Yes full ROM, Yes no joint enlargement, Yes no clubbing, cyanosis or edema, Yes no calf tenderness and Yes normal gait Psych Appearance: grossly normal and well kempt Mental Status: mental status grossly normal Speech and movement: Normal speech and movement present Affect: normal affect Attitude: cooperative Thought process: Normal thought process present Thought content: Normal thought content present Coding Level of Care Code Est Pt Prev Care 18-39y(60403) Diagnoses Mixed dyslipidemia E78.2 Mild intermittent asthma in adult without complication J45.20 Encounter for counseling regarding advance directives Z71.89 Annual visit for general adult medical examination with abnormal findings Z00.01 Morbid obesity E66.01 Additional Codes JADON-7 Assessment Billing - JADON-7 Assessment Tool: JADON-7 Assessment 91919 ([id number]) PHQ-9 - 36839 - PHQ-9 Billing: Yes ([id number]) Vital Signs *Quality* - Advance Care Planning discussion: Completed/Scanned ([id number]) Vital Signs *Quality* - Time spent: 16-45 minutes ([id number]) Assessment & Plan Assessment & Plan (1) Mixed dyslipidemia: Code(s): E78.2 - Mixed hyperlipidemia Category: Medical (2) Mild intermittent asthma in adult without complication: Code(s): J45.20 - Mild intermittent asthma, uncomplicated Category: Medical (3) Encounter for counseling regarding advance directives: Code(s): Z71.89 - Other specified counseling (4) Annual visit for general adult medical examination with abnormal findings: Code(s): Z00.01 - Encounter for general adult medical examination with abnormal findings (5) Morbid obesity: Code(s): E66.01 - Morbid (severe) obesity due to excess calories Category: Medical Plan For this visit, blood work was ordered for a comprehensive metabolic panel, lipid levels, TSH, given the various ongoing health surveillance needs and historical concerns. Asthma is controlled with the use of an albuterol inhaler as required, rarely needing to use. The patient's anxiety disorder symptoms have subsided , with no need for additional medication therapy. Irregular menstruation will be monitored post-discontinuation of hormonal contraception, has an appointment with OBGYN already scheduled for 11/2024. The patient reports interest in weight management discussions, with emphasis on lifestyle modifications, did not pursue referral to Weight Management clinic ordered on last visit. Liver enzymes and other previous concerns will be re-evaluated to ensure levels are within the normal range, with referrals as necessary depending on results. She declined all recommended vaccinations . Patient was informed and verbally consented to the use of an ambient scribe for clinic note documentation during this visit. Orders: Orders Comprehensive [place]. Panel Fast Today E66.9 - Obesity, unspecified, E78.2 - Mixed hyperlipidemia, J45.20 - Mild intermittent asthma, uncomplicated, Z00.01 - Encounter for general adult medical examination with abnormal findings, Z83.49 - Family history of other endocrine, nutritional and metabolic diseases, Z87.42 - Personal history of other diseases of the female genital tract TSH reflex Free T4 Today E66.9 - Obesity, unspecified, E78.2 - Mixed hyperlipidemia, J45.20 - Mild intermittent asthma, uncomplicated, Z00.01 - Encounter for general adult medical examination with abnormal findings, Z83.49 - Family history of other endocrine, nutritional and metabolic diseases, Z87.42 - Personal history of other diseases of the female genital tract Lipid Panel Today E66.9 - Obesity, unspecified, E78.2 - Mixed hyperlipidemia, J45.20 - Mild intermittent asthma, uncomplicated, Z00.01 - Encounter for general adult medical examination with abnormal findings, Z83.49 - Family history of other endocrine, nutritional and metabolic diseases, Z87.42 - Personal history of other diseases of the female genital tract
[2024-07-28 08:09] VITALS: BP 100/74; PULSE 85; O2SAT 98; BMI 41.5
== END 2024-07-28 08:40 | disposition home or self-care (01) ==
PROVIDERS: PCP Internal Medicine; Visit Provider Internal Medicine
DX: Z00.00 Encounter for general adult medical examination without abnormal findings (principal); E66.01 Morbid (severe) obesity due to excess calories; Z68.41 Body mass index [BMI] 40.0-44.9, adult; E78.2 Mixed hyperlipidemia; J45.20 Mild intermittent asthma, uncomplicated